=== PATIENT | female | born 2000 | race Caucasian/White ===

== ENCOUNTER 2022-09-04 09:07 | Outpatient (REF) | payer MEDICAID, SELFPAY ==
[2022-09-04 11:38] LABS: MANUAL DIFF FLAG NO
[2022-09-04 11:49] LABS: Basophils Absolute Auto 0.1 X10*3/uL (0.0-0.2); Basophils Percent Auto 0.6 % (0-2); Eosinophils Absolute Auto 0.1 X10*3/uL (0.0-0.4); Eosinophils Percent Auto 1.2 % (0-4); Hematocrit 44.1 % (37.0-47.0); Hemoglobin 14.6 g/dl (12.0-16.0); Imm Gran Abs Auto 0.01 X10*3/uL (0.00-0.03); Imm Gran Pct Auto 0.1 % (0.0-0.4); Lymphocytes Absolute Auto 2.4 X10*3/uL (1.2-4.9); Lymphocytes Percent Auto 28.5 % (20-40); Mean Corpuscular HGB Conc 33.1 g/dl (31.0-35.0); Mean Corpuscular Hemoglobin 27.9 pg (27.0-33.0); Mean Corpuscular Volume 84.2 fL (80.0-98.0); Mean Platelet Volume 10.6 fL (9.4-12.3); Monocytes Absolute Auto 0.6 X10*3/uL (0.1-1.2); Monocytes Percent Auto 6.6 % (2-11); Neutrophils Absolute Auto 5.2 x10*3/uL (2.0-8.3); Platelet Count 373 X10*3/uL (160-400); Red Blood Count 5.24 X10*6/uL (4.20-5.50); Red Cell Distribution Width 14.6 % (11.0-16.0); White Blood Count 8.3 X10*3/uL (4.8-10.8)
[2022-09-04 12:40] LABS: Anion Gap 12 (12-20); Blood Urea Nitrogen 8 mg/dL (9-16); Calcium 10.2 mg/dL (8.4-10.2); Carbon Dioxide 26 mmol/L (22-29); Chloride 106 mmol/L (96-108); Cholesterol 137 mg/dL; Estimated Glomerular Filt Rate > 60; Glucose Random 86 mg/dL (60-115); HDL Cholesterol 40 mg/dL; LDL Cholesterol Calculated 80 mg/dl; Potassium 3.8 mmol/L (3.3-5.1); Sodium 140 mmol/L (135-145); Triglycerides 85 mg/dL
== END 2022-09-04 09:08 | disposition home or self-care (01) ==
LOC: HO.HHCL 09:07
PROVIDERS: Visit Provider Registered Nurse
DX: Z00.00 Encounter for general adult medical examination without abnormal findings (principal)
CPT/HCPCS: 36415; 80048; 80061; 85025

== ENCOUNTER 2024-04-17 15:27 | Outpatient (REF) | payer MEDICAID, SELFPAY ==
--- NOTE | ~2024-04-17 | XR_ITS ---
EXAMINATION: XR LUMBOSACRAL SPINE CLINICAL INFORMATION: History of scoliosis with worsening pain COMPARISON: None available. TECHNIQUE: Three views of the lumbosacral spine. FINDINGS: No acute cortical disruption or gross malalignment. No lytic or blastic lesions. Small Schmorl nodes in the lower thoracic and upper lumbar spine. XR/XR lumbar spine 2-3V IMPRESSION: No acute fracture or listhesis. No gross scoliosis. Electronically signed by: Corey Scott MD 04/17/2024 04:07 PM [facility]
--- NOTE | ~2024-04-17 | XR_ITS ---
EXAMINATION: XR THORACIC SPINE CLINICAL INFORMATION: PAIN COMPARISON: None available. TECHNIQUE: 3 views of the thoracic spine were obtained. FINDINGS: S-shaped curvature of the thoracic spine. No acute cortical disruption or gross malalignment. XR/XR thoracic spine 2V IMPRESSION: Scoliosis, mild. Electronically signed by: Corey Scott MD 04/17/2024 04:06 PM [facility]
--- OUTSIDE RECORDS SUMMARY | 2024-04-17 17:33 | XMS_ITS | Encounter Summary ---
Author Organization [employer] Address [address] [place] [address] Care Team Providers Care Bilingual School Psychologist Name Role Phone Name, Blaise URIBE Primary Care Provider [phone] Encounter Details Date Type Department Care Team (Latest Contact Info) Description 04/17/2024 Travel Social History Tobacco Use Types Packs/Day Years Used Date Smoking Tobacco: Never Smokeless Tobacco: Never Alcohol Use Standard Drinks/Week Comments Never 0 (1 standard drink = 0.6 oz pur e alcohol) Depression Answer Date Recorded Patient Health Questionnaire-9 Score 2 02/04/2024 Patient Health Questionnaire-9 Score 2 02/04/2024 Last PHQ-9: Questionnaire Data Not on file 1 04/06/2023 Housing Stability Answer Date Recorded What is your housing situation today? I have angel silva 03/25/[address] you li ve. Do you have problems with any of the following? None of the above 03/25/2023 Food Insecurity Answer Date Recorded Within the past 12 months, y ou worried that your food would run out before you got money to buy more: Never True 12/04/2022 Within the past 12 months,th e food you bought just didn't last and you didn't have enough money to get more: Never True Transportation Answer Date Recorded In the past 12 months, has l ack of transportation kept you from medical appts, meetings, work or from getting things needed for daily living? No 12/04/2022 Utilities Answer Date Recorded In the past 12 months, has t he electric, gas, oil or water company threatened to shut off services in your home? No 12/04/2022 Depression Answer Date Recorded Patient Health Questionnaire-2 Score 0 02/04/2024 Comments Unknown Sex and Gender Information Value Date Recorded Sex Assigned at Female 12/18/2021 10:20 AM EDT Legal Sex Female 10:20 AM EDT Gender Identity Female 02/04/2024 12:47 PM EST Sexual Orientation Straight 02/04/2024 12 :47 PM EST documented as of this encounter Plan of Treatment Not on file documented as of this encounter Visit Diagnoses Not on filedocumented in this encounter Additional Health Concerns Assessment Noted Time PHQ-9 Depression Total Score: 2 02/04/20 2:11 PM EST documented as of this encounter Care Teams Bilingual School Psychologist Relationship Specialty Start Date End Date Name, MD Blaise [address] [place] [address] PCP - General Internal Medicine 01/29/24 Tenisha Benavides Auto Body Repairer FiberglassAtomic Spectroscopist 06/04/23 documented as of this encounter
--- OUTSIDE RECORDS SUMMARY | 2024-04-17 17:33 | XMS_ITS | Encounter Summary ---
Author Organization [employer] Address [address] [place] [address] Care Team Providers Care Garment Worker Name Role Phone Leo Dickerson Primary Care Provider Unavail able Harriett Mazariegos MD Primary Care Provide r Name, Blaise URIBE Primary Care Provider [phone] Harriett Mazariegos MD Primary Care Provide r Name, Blaise URIBE Primary Care Provider [phone] Reason for Visit * Reason Onset Date Comments Results 09/04/2022 Encounter Details Date Type Department Care Team (Late st Contact Info) Description 09/04/2022 Telephone [facility] [address] [place], [place] [phone] Leo Dickerson AGNP Results Social History Tobacco Use Types Packs/Day Years Used Date Smoking Tobacco: Never Smokeless Tobacco: Never Alcohol Use Standard Drinks/Week Comments Never 0 (1 standard drink = 0.6 oz pur e alcohol) Depression Answer Date Recorded Patient Health Questionnaire-9 Score 0 07/06/2022 Depression Answer Date Recorded Patient Health Questionnaire-2 Score 0 07/06/2022 Comments Yes Sex and Gender Information Value Date Recorded Sex Assigned at Female 12/18/2021 10:20 AM EDT Legal Sex Female 10:20 AM EDT Gender Identity Female 02/04/2024 12:47 PM EST Sexual Orientation Straight 02/04/2024 12 :47 PM EST COVID-19 Exposure Response Date Recorded In the last 10 days, have som garza been in contact with someone who was confirmed or suspected to have Coronavirus/COVID-19? No / Unsure 08/24/2022 1:39 PM EDT documented as of this encounter Miscellaneous Notes * Telephone Encounter - Dian Mendez - 09/04/2022 2:46 PM EDT Tc from pt requesting a call in regards to recent labs done. Please contact pt at [phone] documented in this encounter Plan of Treatment Not on file documented as of this encounter Visit Diagnoses Not on filedocumented in this encounter Additional Health Concerns Assessment Noted Time PHQ-9 Depression Total Score: 0 07/07/19 10:37 AM EDT documented as of this encounter Care Teams Garment Worker Relationship Specialty Start Date End Date Leo Dickerson AGNP PCP - General Family Medicine 03/28/22 11/07/22 Harriett Mazariegos MD [address] [place] [address] PCP - General Internal Medicine 11/08/22 06/23/23 Blaise Cummings MD [address] [place] [phone] PCP - General Internal Medicine 06/24/23 01/19/24 Harriett Mazariegos MD [address] [place] [phone] PCP - General Internal Medicine 01/20/24 01/28/24 Blaise Cummings MD [address] [place] [address] PCP - General Internal Medicine 01/29/24 Tenisha Benavides Hired HelpChauffeur Motorbus 06/04/23 documented as of this encounter
--- OUTSIDE RECORDS SUMMARY | 2024-04-17 17:33 | XMS_ITS | Clinical Summary ---
Author Organization [email or web address] Address [address] [place] [address] Care Team Providers Care Trailhead Construction Worker Name Role Phone Name, Blaise URIBE Primary Care Provider [phone] Allergies No known active allergies Medications celecoxib (CeleBREX) 200 MG capsule Take 200 mg twice daily x 7 days then as needed for pain 60 capsule 04/17/2024 Active Active Problems Problem Noted Date Diagnosed Date Murmur, cardiac 08/24/2022 Assessment & Plan (08/24/2022 4:59 PM EDT): Patient asymptomatic but I feel an echo is warranted. Anxiety 07/06/2022 Class 1 obesity 07/06/2022 History of migraine 07/06/2022 Overview (07/06/2022): Patient reports last migraine during her first . Assessment & Plan (07/06/2022 11:22 AM EDT): Patient reports last migraine during her first . follow-up 07/06/2022 Assessment & Plan (07/06/2022 12:28 PM EDT): Patient comes across as a very happy and healthy mother. She is followed by OB. They are potentially going to be operating on her due to hydronephrosis. Even though she reports being incredibly happy, I gave her a [place] Depression Scale(EPDS) and told her to look it over when she gets a chance and let me know if anything strikes her as odd. Routine adult health maintenance 07/06/2022 Scoliosis 07/03/2022 Assessment & Plan (07/06/2022 12:30 PM EDT): She has a history of scoliosis and lumbar back pain. We were waiting for her to deliver her son before we sent her. Teen 07/06/2019 Overview (07/06/2022): Problem added [place] Discern Expert [place] Resolved Problems Problem Noted Date Diagnosed Date Resolved Date Migraine 07/06/2022 07/06/2022 Encounters Date Type Department Care Team Description 04/17/2024 2:15 PM EST Office Visit [address] [address] Slime Loaiza, SYLVESTER Scoliosis, unspecified scoliosis type, unspecified spinal region (Primary Dx) 04/17/2024 Travel 04/16/[address] [address] NameBlaise MD 02/04/2024 1:15 PM EST Office Visit [address] [address] Blaise Cummings MD Murmur, cardiac (Primary Dx); Routine adult health maintenance 02/04/2024 Travel 02/03/[address] [address] Elvira Baker MA Chart Prep 01/29/[address] [address] Radha Anderson, KIMBERLY Error (VOID this visit) 01/29/[address] [address] Radha Anderson, RN from Last 3 Months Immunizations Name Administration Dates Next Due DTaP 03/27/2004, 2,2000,05/29 HPV 9-Valent 07/19/2015 HPV, Quadrivalent 10/16/2011,06/20/2011 Hep A, ped/adol, 2 dose 01/24/2016,07/19/2015 Hep B, Adolescent or Pediatric 06/30/2001,2000,2000 Hib (HbOC) 06/30/2001,2000,2000 IPV 03/27/2004, 1,2000,05/29 Influenza injectable quadriv alent preservative free 01/24/2016 Influenza, IIV3, injectable 02/27/2008 Influenza, seasonal, injecta ble, preservative free 02/04/2024 MMR 03/27/2004,04/22/2001 Meningococcal MPSV4 06/20/2011 Pneumococcal Conjugate PCV 7 2000,08/13/19,2000 Tdap 06/20/2011 Varicella 02/27/2008,04/22/2001 Social History Tobacco Use Types Packs/Day Years Used Date Smoking Tobacco: Never Smokeless Tobacco: Never Tobacco Cessation:Counseling Given: Not Answered Alcohol Use Standard Drinks/Week Comments Never 0 [...] Orientation Straight 02/04/2024 12 :47 PM EST Last Filed Vital Signs Vital Sign Reading Time Taken Comments Blood Pressure 113/70 04/17/2024 2:37 PM EST Pulse 103 04/17/2024 2:37 PM EST Temperature 37 ??C (98.6 ??F) 04/17/2024 2:37 PM EST Respiratory Rate 16 04/17/2024 2:37 PM EST Oxygen Saturation 98% 04/17/2024 2:37 PM EST Inhaled Oxygen Concentration - - Weight 61.1 kg (134 lb 9.6 oz) 04/17/2024 2:37 P M EST Height 154.9 cm (5' 1 ) 04/17/2024 2:37 PM EST Body Mass Index 25.43 04/17/2024 2:37 PM EST Plan of Treatment Health Maintenance Due Date Last Done Comments Alcohol/Substance Use Screening 2012 Family Planning (PISQ) 2015 DTaP/Tdap/Td Vaccines (6 - Td or Tdap) 06/19/2021 06/20/2011, 03/27/2004, 04/22/2001, Additional history exists COVID-19 Vaccine ( season) 2023 SDOH Screening 05/14/2024 05/15/2023 Pap Smear 06/13/2024 06/13/2021 Depression Screening 02/03/2025 02/04/2024, 02/04/20 Tobacco Screening 04/17/2025 04/17/2024 Zoster Vaccines (1 of 2) 2050 RSV Patients and Patients Aged 60 years or older (1 - 1-dose 75+ series) 2075 Pneumococcal Vaccine: Pediatrics (0 to 5 Years) and At-Risk Patients (6 to 49) Years) Aged Out 2000, 2000, 2000 No longer eligible based on patient's age to complete this topic HIB Vaccines Completed 06/30/2001, 07/20, 2000 Hepatitis B Vaccines Completed 06/30/2001, 2000, 2000 IPV Vaccines Completed 03/27/2004, 10/20, 2000, Additional history exists Meningococcal Vaccine Aged Out 06/20/2011 No rigo sapna eligible based on patient's age to complete this topic HPV Vaccines Completed 07/19/2015, 09/19, 06/20/2011 Hepatitis A Vaccines Completed 01/24/2016, 07/19/19 16 Influenza Vaccine Completed 02/04/2024, , 02/27/2008 HIV Screening Discontinued Hepatitis C Screening Discontinued RSV under 20 months Aged Out No longe r eligible based on patient's age to complete this topic Rotavirus Vaccines Aged Out No longer eligible based on patient's age to complete this topic Procedures Procedure Name Priority Date/Time Associated Diagnosis Comments XR LUMBAR SPINE 2-3 VIEWS Routine 04/17/2024 3:30 PM EST Scoliosis, unspecified scoliosis type, unspecified spinal region XR THORACIC SPINE 2 VIEWS Routine 04/17/2024 3:30 PM EST Scoliosis, unspecified scoliosis type, unspecified spinal region HM PAP/HPV Routine 06/13/2021 from Last 3 Months or Most Recently Relevant to Health Maintenance Results * XR Lumbar Spine 2-3 Views (04/17/2024 3:30 PM EST) Anatomical Region Laterality Modality Spine, L-spine Radiographic Adalgisa ging 04/17/2024 3:30 PM EST Narrative 04/17/2024 4:10 PM EST ?[facility] ?[address] ?[place] [address] ?XRay Report ? Signed ? Patient: Andersen Lazo,Jesenia ?MR#: [id number] ? : 2000 ?Acct:[id number] ? Age/Sex: 24 / F ?ADM Date: /28/25 ? Loc: HO.HHCX ? Attending Dr: Slime Loaiza MANAGER CONTACT ? Ordering Physician: Slime Loaiza ?? Date of Service: 04/17/24 ?? Procedure(s): XR lumbar spine 2-3V ?? Accession Number(s): [id number] ? cc: Slime Loaiza MANAGER CONTACT ? EXAMINATION: ?? XR LUMBOSACRAL SPINE ? CLINICAL INFORMATION: ?? History of scoliosis with worsening pain ? COMPARISON: ?? None available. ? TECHNIQUE: ?? Three views of the lumbosacral spine. ? FINDINGS: ?? No acute cortical disruption or gross malalignment. No lytic or blastic ?? lesions. Small Schmorl nodes in the lower thoracic and upper lumbar ?? spine. ? XR/XR lumbar spine 2-3V ?? IMPRESSION: ?? No acute fracture or listhesis. ?? No gross scoliosis. ? Electronically signed by: ??Corey Scott MD ??04/17/2024 04:07 PM ?? EST RP ? Dictated By: ?Corey Ruiz MD ? Signed By: ?<Electronically signed by Corey Yo MD in OV> ? 04/17/24 1607 ? DD/ 1530 ? TD/TT: 04/17/24 1552 ? Therapy Site Coordinator: ? Procedure Note Angela Rosa - 04/17/[address] [address] XRay Report Signed Patient: Juan Manuel Franco#: [id number] : 2000Acct:[id number] Age/Sex: 24 / FADM Date: 04/17/24 Loc: HO.HHCX Attending Dr: Slime PHAN Ordering Physician: Slime Loaiza Date of Service: 04/17/24 Procedure(s): XR lumbar spine 2-3V Accession Number(s): [id number] cc: Slime Loaiza EXAMINATION: XR LUMBOSACRAL SPINE CLINICAL INFORMATION: History of scoliosis with worsening pain COMPARISON: None available. TECHNIQUE: Three views of the lumbosacral spine. FINDINGS: No acute cortical disruption or gross malalignment. No lytic or blastic lesions. Small Schmorl nodes in the lower thoracic and upper lumbar spine. XR/XR lumbar spine 2-3V IMPRESSION: No acute fracture or listhesis. No gross scoliosis. Electronically signed by: Corey Scott MD 04/17/2024 04:07 PM EST RP Dictated By: Corey Ruiz MD Signed By: <Electronically signed by Corey Yo MDin OV> 04/17/24 1607 DD/ 1530 TD/TT: 04/17/24 1552 Therapy Site Coordinator: us Slime Sampsonhansa MANAGER CONTACT IMG XR PROCEDURES Final Result * XR Thoracic Spine 2 Views (04/17/2024 3:30 PM EST) Anatomical Region Laterality Modality Spine, T-spine Radiographic Adalgisa ging 04/17/2024 3:30 PM EST Narrative 04/17/2024 4:09 PM EST ?[facility] ?[address] ?[place] [address] ?XRay Report ? Signed ? Patient: Jesenia Franco ?MR#: [id number] ?? [id number] ? : 2000 ?Acct:[id number] ? Age/Sex: 24 / F ?ADM Date: 04/17/24 ? Loc: HO.HHCX ? Attending Dr: Slime Loaiza MANAGER CONTACT ? Ordering Physician: Slime Loaiza MANAGER CONTACT ?? Date of Service: 04/17/24 ?? Procedure(s): XR thoracic spine 2V ?? Accession Number(s): [id number] ? cc: Slime Loaiza MANAGER CONTACT ? EXAMINATION: ?? XR THORACIC SPINE ? CLINICAL INFORMATION: ?? PAIN ? COMPARISON: ?? None available. ? TECHNIQUE: ?? 3 views of the thoracic spine were obtained. ? FINDINGS: ?? S-shaped curvature of the thoracic spine. No acute cortical disruption ?? or gross malalignment. ? XR/XR thoracic spine 2V ?? IMPRESSION: ?? Scoliosis, mild. ? Electronically signed by: ??Corey Scott MD ??04/17/2024 04:06 PM ?? EST RP ? Dictated By: ?Corey Ruiz MD ? Signed By: ?<Electronically signed by Corey Yo MD in OV> ? 04/17/24 1606 ? DD/ 1530 ? TD/TT: 04/17/24 1552 ? Therapy Site Coordinator: ? Procedure Note Donotuseinterpreter, Image - 04/17/[address] [address] XRay Report Signed Patient: Juan Manuel Franco#: [id number] : 2000Acct:[id number] Age/Sex: 24 / FADM Date: 04/17/24 Loc: HO.HHCX Attending Dr: Slime PHAN Ordering Physician: Slime Loaiza Date of Service: 04/17/24 Procedure(s): XR thoracic spine 2V Accession Number(s): [id number] cc: Slime Loaiza EXAMINATION: XR THORACIC SPINE CLINICAL INFORMATION: PAIN COMPARISON: None available. TECHNIQUE: 3 views of the thoracic spine were obtained. FINDINGS: S-shaped curvature of the thoracic spine. No acute cortical disruption or gross malalignment. XR/XR thoracic spine 2V IMPRESSION: Scoliosis, mild. Electronically signed by: Corey Scott MD 04/17/2024 04:06 PM [facility] Dictated By: Corey Ruiz MD Signed By: <Electronically signed by Corey Yo MDin OV> 04/17/24 1606 DD/ 1530 TD/TT: 04/17/24 1552 Therapy Site Coordinator: Slime Loaiza MANAGER CONTACT IMG XR PROCEDURES Final Result * Hm Pap Smear (06/13/2021) Pap Negative for intraephithelial lesion or malignancy Negative for intraephithelial lesion or malignancy, Other us Historical Provider HEALTH MAINTENANCE Final Result from Last 3 Months or Most Recently Relevant to Health Maintenance Insurance [facility] C3 Care Teams Trailhead Construction Worker Relationship Specialty Start Date End Date Name, MD Blaise [address] [place] [id number] PCP - General Internal Medicine 01/29/24 Tenisha Benavides Windows Deployment TechnicianHospice Community Liaison 06/04/23
--- OUTSIDE RECORDS SUMMARY | 2024-04-17 17:33 | XMS_ITS | Encounter Summary ---
Author Organization [employer] Address [address] [place] [address] Care Team Providers Care Solderer Name Role Phone Harriett Mazariegos MD Primary Care Provide r Name, Blaise URIBE Primary Care Provider [phone] Harriett Mazariegos MD Primary Care Provide r Name, Blaise URIBE Primary Care Provider [phone] Reason for Visit * Reason Onset Date Comments Request For Order(s) 12/06/2022 Stress Echo Stress Encounter Details Date Type Department Care Team ([facility] st Contact Info) Description 12/06/2022 Telephone [facility] [address] [place] [phone] Harriett Mazariegos MD [address] [place], [place] [phone] Request For Order(s) (Stress Echo Stress) Social History Tobacco Use Types Packs/Day Years Used Date Smoking Tobacco: Never Smokeless Tobacco: Never Alcohol Use Standard Drinks/Week Comments Never 0 (1 standard drink = 0.6 oz pur e alcohol) Depression Answer Date Recorded Patient Health Questionnaire-9 Score 0 07/06/2022 Housing Stability Answer Date Recorded What is your housing situation today? I do not have housing (Staying with others, in a hotel, in a half-way, living outside on the street, on a beach, in a car, or in a park 11/25/[address] you li ve. Do you have problems with any of the following? None of the above 11/25/2022 Food Insecurity Answer Date Recorded Within the [...] PM EST documented as of this encounter Miscellaneous Notes * Telephone Encounter - Iva Art RN - 12/06/2022 11:02 AM EDT TC returned to [facility], informed their office stress echo was never intended ren ordered. They report the booking facility booked pt. For the wrong test, therefore the scheduling process would have to be restarted with he correct order (regular echo order form 08/24/22). They requested I call the patient to let her know not to come to her appt. Tomorrow. TC placed to pt. And informed of this, she verbalizes understanding and will expect a call to r/s the correct test. Please schedule regular echo at [facility], thank you!! * Telephone Encounter - Iva Art RN - 12/06/2022 10:33 AM EDT Regular echo was ordered at appt. With ABDIRIZAK Dickerson 08/24/22 to evaluate heart murmur, pt. Asymptomatic, details were:Comments: Murmur: Leon with each beat over aortic valve. Not heard over pulmonary valve, erb's point, or tricuspid valve. Murmur changes to a whooshing sound every 3 or 4 heart beats over the mitral valve. Please advise on if order needs to be changed to stress echo, or if regular echo if sufficient so [facility] can appropriately schedule pt. Thank you!! * Telephone Encounter - Josiah Lu - 12/06/2022 9:12 AM EDT Tc from [facility] calling in regards to echo order from 08/24/22 by LUPE Dickerson.Patient is currently booked for a stress echo on 12/07/22 at 1pm at [facility]. [facility] is inquiring if thetest is meant to be for a regular echo or a stress echo which will need a new order, [facility] only has regular echo order. Please clarify and send correct order. If PCP does not want a stress echo patie nts appt will have to be cancelled and booked for correct order. Please call [phone] Fax number [phone]. documented in this encounter Plan of Treatment Not on file documented as of this encounter Visit Diagnoses Not on filedocumented in this encounter Additional Health Concerns Assessment Noted Time PHQ-9 Depression Total Score: 0 07/07/19 10:37 AM EDT documented as of this encounter Care Teams Solderer Relationship Specialty Start Date End Date Harriett Mazariegos MD [address] [place], [place] [phone] PCP - General Internal Medicine 11/08/22 06/23/23 Blaise Cummings MD [address] [place], [place] [phone] PCP - General Internal Medicine 06/24/23 01/19/24 Harriett Mazariegos MD [address] [place], [place] [phone] PCP - General Internal Medicine 01/20/24 01/28/24 Blaise Cummings MD [address] [place] [address] PCP - General Internal Medicine 01/29/24 Tenisha Benavides DominatrixWhip Sawyer 06/04/23 documented as of this encounter
--- OUTSIDE RECORDS SUMMARY | 2024-04-17 17:33 | XMS_ITS | Encounter Summary ---
Author Organization [employer] Address [address] [place] [address] Care Team Providers Care Filling Hauler Weaving Name Role Phone Name, Blaise URIBE Primary Care Provider [phone] Encounter Details Date Type Department Care Team ([facility] st Contact Info) Description 04/16/2024 Telephone [facility] [address] [place] [address] Name, MD Blaise [address] [place] [address] Social History Tobacco Use Types Packs/Day Years [...] encounter Miscellaneous Notes * Telephone Encounter - Carley Conte RN - 04/16/2024 4:54 PM EST Call returned to Jesenia Lazo to triage below. Reports having chronic low back pain but has been worse x 2 months. No radiating pain to legs. No urinary sx. No injury or fall. Per pt is using OTC Tyelnol/Advil with mild relief. Pt rates pain 5/10.Pt states pain interfering with ADLs Pt advised of disposition, agrees to sick on site tomorrow with blue team provider for exam. Reviewed home care advise, ER precautions and reasons to call back. Protocol Used: Back Pain (Adult) Protocol-Based Disposition: See in Office or Video Visit within 3 Days Future Appointments Date Time Provider Department Center 04/17/2024 2:15 PM SYLVESTER Alfredo MEDICINE [facility] Insurance verified as active per Real Time Eligibility in [facility]. Video visit offer not recorded Positive Triage Question: * Moderate back pain (e.g., interferes with normal activities) and present > 3 days * All higher-acuity triage questions were negative Care Advice Discussed: * Reasons To Call Back - Numbness or weakness occurs - Loss of control of your bladder or bowel - Pain begins to shoot into the leg - You become worse documented in this encounter Plan of Treatment Not on file documented as of this encounter Visit Diagnoses Not on filedocumented in this encounter Additional Health Concerns Assessment Noted Time PHQ-9 Depression Total Score: 2 02/04/20 24 2:11 PM EST documented as of this encounter Care Teams Filling Hauler Weaving Relationship Specialty Start Date End Date Name, MD Blaise [address] [place] [address] PCP - General Internal Medicine 01/29/24 Tenisha Benavides Arboriculture InstructorHeading Up Machine Operator 06/04/23 documented as of this encounter
--- OUTSIDE RECORDS SUMMARY | 2024-04-17 17:33 | XMS_ITS | Encounter Summary ---
Author Organization [employer] Address [address] [place] [address] Care Team Providers Care Operational Trainer Name Role Phone Name, Blaise URIBE Primary Care Provider [phone] Encounter Details Date Type Department Care Team (Late st Contact Info) Description 04/17/2024 2:15 PM EST Office Visit [facility] [address] [place] [address] Slime Loaiza FNP [address] [place] [address] Scoliosis, unspecified scoliosis type, unspecified spinal region (Primary Dx) Social History Tobacco Use Types Packs/Day Years [...] PM EST documented as of this encounter Last Filed Vital Signs Vital Sign Reading [...] Mass Index 25.43 04/17/2024 2:37 PM EST documented in this encounter Plan of Treatment Not on file documented as of this encounter Procedures Procedure Name Priority Date/Time Associated Diagnosis Comments XR LUMBAR SPINE 2-3 VIEWS Routine 04/17/2024 3:30 PM EST Scoliosis, unspecified scoliosis type, unspecified spinal region XR THORACIC SPINE 2 VIEWS Routine 04/17/2024 3:30 PM EST Scoliosis, unspecified scoliosis type, unspecified spinal region documented in this encounter Results * XR Lumbar Spine 2-3 Views (04/17/2024 3:30 PM EST) Anatomical Region Laterality Modality Spine, L-spine Radiographic Adalgisa ging 04/17/2024 3:30 PM EST Narrative 04/17/2024 4:10 PM EST ?[facility] ?[address] ?[place] [address] ?XRay Report ? Signed ? Patient: Andersen Lazo,Jesenia ?MR#: [id number] ? : 2000 ?Acct:[id number] ? Age/Sex: 24 / F ?ADM Date: 04/17/24 ? Loc: HO.HHCX ? Attending Dr: Slime PHAN ? Ordering Physician: Slime Loaiza ?? Date of Service: 04/17/24 ?? Procedure(s): XR lumbar spine 2-3V ?? Accession Number(s): [id number] ? cc: Slime Loaiza ? EXAMINATION: ?? XR LUMBOSACRAL SPINE ? [...] DD/ 1530 ? TD/TT: 04/17/24 1552 ? Senior Procurement Manager: ? Procedure Note Angela Rosa - 04/17/2024 [facility] [address] [place] [address] XRay Report Signed Patient: Juan Manuel Franco#: [id number] : 2000Acct:[id number] Age/Sex: 24 / FADM Date: 04/17/24 Loc: HO.HHCX Attending Dr: Slime PHAN Ordering Physician: Slime Loaiza Date of Service: 04/17/24 Procedure(s): XR lumbar spine 2-3V Accession Number(s): [id number] cc: Slime Loaiza EXAMINATION: XR LUMBOSACRAL SPINE [...] 04/17/24 1607 DD/ 1530 TD/TT: 04/17/24 1552 Senior Procurement Manager: Slime Loaiza REHABILITATION SUPERVISOR IMG XR PROCEDURES Final Result * XR Thoracic Spine 2 Views (04/17/2024 3:30 PM EST) Anatomical Region Laterality Modality Spine, T-spine Radiographic Adalgisa ging 04/17/2024 3:30 PM EST Narrative 04/17/2024 4:09 PM EST ?[facility] ?[address] ?[place] [address] ?XRay Report ? Signed ? Patient: Andersen Lazo,Jesenia ?MR#: [id number] ?? [id number] ? : 2000 ?Acct:[id number] ? Age/Sex: 24 / F ?ADM Date: 02/28/25 ? Loc: HO.HHCX ? Attending Dr: Slime PHAN ? Ordering Physician: Slime Loaiza ?? Date of Service: 04/17/24 ?? Procedure(s): XR thoracic spine 2V ?? Accession Number(s): [id number] ? cc: Slime Loaiza ? EXAMINATION: ?? XR THORACIC SPINE ? [...] DD/ 1530 ? TD/TT: 04/17/24 1552 ? Senior Procurement Manager: ? Procedure Note Angela Rosa - 04/17/[address] [address] XRay Report Signed Patient: Juan Manuel Franco#: [id number] : 2000Acct:[id number] Age/Sex: 24 / FADM Date: 04/17/24 Loc: HO.HHCX Attending Dr: Slime PHAN Ordering Physician: Slime Loaiza Date of Service: 04/17/24 Procedure(s): XR thoracic spine 2V Accession Number(s): [id number] cc: Slime Loaiza EXAMINATION: XR THORACIC SPINE [...] 04/17/24 1606 DD/ 1530 TD/TT: 04/17/24 1552 Senior Procurement Manager: us Slimekan Bradenhansa REHABILITATION SUPERVISOR IMG XR PROCEDURES Final Result documented in this encounter Visit Diagnoses Diagnosis Scoliosis, unspecified scoliosis type, unspecified spinal region- Primary documented in this encounter Additional Health Concerns Assessment Noted Time PHQ-9 Depression Total Score: 2 02/04/20 24 2:11 PM EST documented as of this encounter Care Teams Operational Trainer Relationship Specialty Start Date End Date Name, MD Blaise [address] [place] [address] PCP - General Internal Medicine 01/29/24 Tenisha Benavides Senior Power Plant OperatorMechanical Piping Designer 06/04/23 documented as of this encounter
== END 2024-04-17 15:28 | disposition home or self-care (01) ==
LOC: HO.HHCX 15:27
PROVIDERS: Visit Provider Nurse Practitioner Family
DX: M41.9 Scoliosis, unspecified (principal)
CPT/HCPCS: 72070; 72100

== ENCOUNTER → 2024-04-17 15:30 | Outpatient (BNV) | payer MEDICAID, SELFPAY | PROVIDERS: Visit Provider Radiology Diagnostic Radiology | DX: M41.9 Scoliosis, unspecified (principal) | CPT/HCPCS: 72070; 72100 ==

== ENCOUNTER 2024-11-17 14:04 | Outpatient (REF) | payer MEDICAID, SELFPAY ==
--- OUTSIDE RECORDS SUMMARY | 2024-11-12 09:00 | XMS_ITS | Encounter Summary ---
Author Organization [employer] Address [address] [place] [address] Care Team Providers Care Safe And Vault Service Mechanic Name Role Phone Name, Blaise URIBE Primary Care Provider [phone] Reason for Visit * Reason Comments Blurred Vision Encounter Details Date Type Department Care Team (Late st Contact Info) Description 11/12/2024 9:00 AM EDT Office Visit [facility] OPTOMETRY [address] [place] [address] Violeta Mccabe, OD [address] [place] [address] Myopia of both eyes (Primary Dx); Eyelid myokymia Social History Tobacco Use Types Packs/Day Years [...] is your housing situation today? I have nagel silva 03/25/[address] you [...] PM EST documented as of this encounter Progress Notes * Violeta Mccabe, OD - 11/12/2024 9:00 AM EDT Eye Care Progress Note Patient ID: Jesenia Lazo is a 24 y.o. female. Chief Complaint Blurred Vision HPI 24 yo female presents for comprehensive eye exam complaining of blurred distance vision for the past few months. She wears spectacles for distance only and notices that she doesn't seem to see as well with them as before. She also has noticed occasional eye twitching recently after prolonged near work. She denies all other ocular complaints. Last edited by Violeta Mccabe, OD on 11/12/2024 9:29 AM. Current Medications[1] Medical History[2] Surgical History[3] Family History[4] Social History Socioeconomic History Marital status: Significant Other Spouse name: Not on file Number of children: Not on file Years of education: Not on file Highest education level: Not on file Occupational History Not on file Tobacco Use Smoking status: Never Smokeless tobacco: Never Vaping Use Vaping status: Never Used Substance and Sexual Activity Alcohol use: Never Drug use: Never Sexual activity: Yes control/protection: Surgical Other Topics Concern Not on file Social History Narrative Not on file Social Drivers of Health Food Insecurity: Low Risk (12/04/2022) Food Insecurity Within the past 12 months, you worried that your food would run out before you got money to buy more:: Never True Within the past 12 months,the food you bought just didn't last and you didn't have enough money to get more: : Never True Transportation Needs: Low Risk (12/04/2022) Transportation In the past 12 months, has lack of transportation kept you from medical appts, meetings, work or from getting things needed for daily living? : No Intimate Partner Violence: Not on file Housing Stability: Low Risk (03/25/2023) Housing Stability What is your housing situation today?: I have housing Think about the place you live. Do you have problems with any of the following? : None of the above Allergies[5] ROS Positive for: Neurological (migraine), Psychiatric (anxiety) Negative for: Constitutional, Gastrointestinal, Skin, Genitourinary, Musculoskeletal, HENT, Endocrine, Cardiovascular, Eyes, Respiratory, Allergic/Imm, Heme/Lymph Last edited by Violeta Mccabe, BRIAN on 11/12/2024 9:13 AM. Base Eye Exam Visual Acuity (Snellen - Linear) Right Left Dist cc 20/25 -2 20/30 +2 Tonometry ([facility] , 9:25 AM) Right Left Pressure 14 13 Pupils Pupils APD Right PERRL None Left PERRL None Visual Cody (Counting fingers) Left Right Full Full Extraocular Movement Right Left Full, Ortho Full, Ortho Neuro/Psych Oriented x3: Yes Mood/Affect: Normal Dilation Both eyes: 1.0% Mydriacyl @ 9:25 AM Slit Lamp and Fundus Exam External Exam Right Left External Normal Normal Slit Lamp Exam Right Left Lids/Lashes Normal Normal Conjunctiva/Sclera White and quiet White and quiet Cornea Clear Clear Anterior Chamber Deep and quiet Deep and quiet Iris Flat Flat Lens Clear Clear Fundus Exam Right Left Vitreous Clear Clear Disc Krupp and distinct Krupp and distinct C/D Ratio Vertical 0.2 0.2 C/D Ratio Horizontal 0.2 0.2 Macula Clear Clear Vessels 2/3:1 2/3:1 Periphery No holes, breaks, tears 360 No holes, breaks, tears 360 Refraction Wearing Rx Sphere Cylinder Right -0.75 Sphere Left -1.00 Sphere Type: DVO Manifest Refraction Sphere Cylinder Dist VA Near VA Right -1.00 Sphere 20/20 20/20 Left -1.25 Sphere 20/20 20/20 Final Rx Sphere Cylinder Dist VA Near VA Right -1.00 Sphere 20/20 20/20 Left -1.25 Sphere 20/20 20/20 Expiration Date: 11/12/2026 Assessment/plan: Diagnoses and all orders for this visit: Myopia of both eyes Myopia both eyes (OU) in a patient with complaint of blurred distance vision. Patient education regarding mild progression of myopia and spectacle correction for distance vision. New Spectacle Rx issued for DVO. Monitor at comprehensive eye exam in 2 years or sooner if any changes in vision occur. 2. Eyelid myokymia Complaint of intermittent eyelid twitching after prolonged near work. Likely due to accommodative spasm and nearpoint stress. Normal internal and external ocular findings on dilated eye exam. Discussed importance of taking breaks periodically when performing near tasks as well as removing distance spectacles for near work. Monitor at CEE in 2 years or sooner if symptoms worsen. Violeta Mccabe, OD 11/12/2024, 9:31 AM [1] Current Outpatient Medications Medication Sig Dispense Refill celecoxib (CeleBREX) 200 MG capsule TAKE 1 CAPSULE BY MOUTH TWICE A DAY X 7 DAYS THEN NEEDED FORPAIN 60 capsule 0 No current facility-administered medications for this visit. [2] History reviewed. No pertinent past medical history. [3] Past Surgical History: Procedure Laterality Date SECTION, LOW TRANSVERSE for her 3 deliveries TUBAL LIGATION [4] No family history on file. [5] No Known Allergies documented in this encounter Plan of Treatment Not on file documented as of this encounter Visit Diagnoses Diagnosis Myopia of both eyes- Primary Eyelid myokymia Other facial nerve disorders documented in this encounter Additional Health Concerns Assessment Noted Time PHQ-9 Depression Total Score: 2 02/04/20 24 2:11 PM EST documented as of this encounter Care Teams Safe And Vault Service Mechanic Relationship Specialty Start Date End Date Name, MD Blaise [address] [place] [address] PCP - General Internal Medicine 01/29/24 Tenisha Benavides Protection AgentBiomass Technician 06/04/23 documented as of this encounter
--- OUTSIDE RECORDS SUMMARY | 2024-11-17 15:27 | XMS_ITS | Encounter Summary ---
Author Organization [employer] Address [address] [place] [address] Care Team Providers Care Supervisor Cap And Hat Production Name Role Phone Leo Dickerson Primary Care Provider Unavail able Harriett Mazariegos MD Primary Care Provide r Name, Blaise URIBE Primary Care Provider [phone] Harriett Mazariegos MD Primary Care Provide r Name, Blaise URIBE Primary Care Provider [phone] Reason for Visit * Reason Onset Date Comments Results 09/04/2022 Encounter Details Date Type Department Care Team (Late st Contact Info) Description 09/04/2022 Telephone [facility] [address] [place], [place] [phone] Leo Dickerson AGNP Results Social History Tobacco [...] Recorded In the last 10 days, have yo u been in contact with someone who was confirmed or suspected to have Coronavirus/COVID-19? No / Unsure 08/24/2022 1:39 PM EDT documented as of this encounter Miscellaneous Notes * Telephone Encounter - Dian Mendez - 09/04/2022 2:46 PM EDT Tc from pt requesting a call in regards to recent labs done. Please contact pt at [phone] documented in this encounter Plan of Treatment Not on file documented as of this encounter Visit Diagnoses Not on filedocumented in this encounter Additional Health Concerns Assessment Noted Time PHQ-9 Depression Total Score: 0 07/07/19 10:37 AM EDT documented as of this encounter Care Teams Supervisor Cap And Hat Production Relationship Specialty Start Date End Date Leo Dickerson AGNP PCP - General Family Medicine 03/28/22 11/07/22 Harriett Mazariegos MD [address] [place] [address] PCP - General Internal Medicine 11/08/22 06/23/23 Blaise Cummings MD [address] [place] [address] PCP - General Internal Medicine 06/24/23 01/19/24 Harriett Mazariegos MD [address] [place] [address] PCP - General Internal Medicine 01/20/24 01/28/24 Blaise Cummings MD [address] [place] [address] PCP - General Internal Medicine 01/29/24 Tenisha Benavides Glass Wool Blanket Machine FeederSustainability Communicator 06/04/23 documented as of this encounter
--- OUTSIDE RECORDS SUMMARY | 2024-11-17 15:27 | XMS_ITS | Encounter Summary ---
Author Organization [employer] Address [address] [facility] [address] [place] [address] Care Team Providers Care Manager Payer Name Role Phone Harriett Mazariegos MD Primary Care Provide r Name, Blaise URIBE Primary Care Provider [phone] Harriett Mazariegos MD Primary Care Provide r Name, Blaise URIBE Primary Care Provider [phone] Reason for Visit * Reason Onset Date Comments Request For Order(s) 12/06/2022 Stress Echo Stress Encounter Details Date Type Department Care Team ([facility] st Contact Info) Description 12/06/2022 Telephone [facility] [address] [place], [place] [phone] Harriett Mazariegos MD [address] [place], [place] [phone] Request For Order(s) (Stress Echo Stress) Social [...] with others, in a hotel, in a longterm, living outside on the street, on a [...] 12/06/2022 11:02 AM EDT TC returned to [facility], informed their office stress [...] correct test. Please schedule regular echo at [facility], thank you!! * Telephone Encounter - Iva Art RN - 12/06/2022 10:33 AM EDT Regular echo was ordered at appt. With ABDIRIZAK Dickerson 08/24/22 to evaluate heart murmur, pt. Asymptomatic, details were:Comments: Murmur: [place] with each beat over aortic valve. Not heard over pulmonary valve, erb's point, or tricuspid valve. Murmur changes to a whooshing sound every 3 or 4 heart beats over the mitral valve. Please advise on if order needs to be changed to stress echo, or if regular echo if sufficient so [facility] can appropriately schedule pt. Thank you!! * Telephone Encounter - Josiah Lu - 12/06/2022 9:12 AM EDT Tc from [facility] calling in regards to echo order from 08/24/22 by LUPE Dickerson.Patient is currently booked for a stress echo on 12/07/22 at 1pm at [facility]. [facility] is inquiring if thetest is meant to be for a regular echo or a stress echo which will need a new order, [facility] only has regular echo order. Please clarify and send correct order. If PCP does not want a stress echo patie nts appt will have to be cancelled and booked for correct order. Please call [phone] Fax number [phone]. documented in this encounter Plan of Treatment Not on file documented as of this encounter Visit Diagnoses Not on filedocumented in this encounter Additional Health Concerns Assessment Noted Time PHQ-9 Depression Total Score: 0 07/07/19 10:37 AM EDT documented as of this encounter Care Teams Manager Payer Relationship Specialty Start Date End Date Harriett Mazariegos MD [address] [place], [place] [phone] PCP - General Internal Medicine 11/08/22 06/23/23 Name, MD Blaise [address] [place], [place] [phone] PCP - General Internal Medicine 06/24/23 01/19/24 Harriett Mazariegos MD [address] [place], [place] [phone] PCP - General Internal Medicine 01/20/24 01/28/24 Blaise Cummings MD [address] [place], [place] [phone] PCP - General Internal Medicine 01/29/24 Tenisha Benavides Electronic Warfare TechnicalMarble Cutter Operator 06/04/23 documented as of this encounter
--- OUTSIDE RECORDS SUMMARY | 2024-11-17 15:28 | XMS_ITS | Encounter Summary ---
Author Organization [employer] Address [address] [place] [address] Care Team Providers Care Printing Shop Supervisor Name Role Phone Name, Blaise URIBE Primary Care Provider [phone] Encounter Details Date Type Department Care Team (Latest Contact Info) Description 11/12/2024 Travel Social History Tobacco Use Types Packs/Day [...] documented as of this encounter Care Teams Printing Shop Supervisor Relationship Specialty Start Date End Date Name, MD Blaise [address] [place] [address] PCP - General Internal Medicine 01/29/24 Tenisha Benavides Stud Beef Cattle FarmerSpring Fitter Helper 06/04/23 documented as of this encounter
--- OUTSIDE RECORDS SUMMARY | 2024-11-17 15:28 | XMS_ITS | Clinical Summary ---
Author Organization [employer] Address [address] [place] [address] Care Team Providers Care Business Strategist Name Role Phone Name, Blaise URIBE Primary Care Provider [phone] Allergies No known active allergies Medications celecoxib (CeleBREX) 200 MG capsuleIndicati ons:Chronic bilateral low back pain without sciatica TAKE 1 CAPSULE BY MOUTH TWICE A DAY X 7 DAYS THEN NEEDED FOR PAIN 60 capsule 05/27/2024 Active Active Problems Problem Noted Date Diagnosed Date Chronic bilateral low back pain without sciatica 04/21/2024 Murmur, cardiac 08/24/2022 Assessment & Plan (08/24/2022 [...] being incredibly happy, I gave her a Amberson Depression Scale(EPDS) and told her to look [...] Overview (07/06/2022): Problem added by Discern Expert @[facility]:9 Resolved Problems Problem Noted Date Diagnosed Date Resolved Date Migraine 07/06/2022 07/06/2022 Encounters Date Type Department Care Team Description 11/12/2024 9:00 AM EDT Office Visit [facility] [address] [place], [place] [phone] Violeta Mccabe, OD Myopia of both eyes (Primary Dx); Eyelid myokymia 11/12/2024 Travel 10/21/2024 Telephone [facility] [address] [place], [place] [phone] Name, MD Blaise from Last 3 Months Immunizations Immunization Administration Dates Next Due DTaP 03/27/2004, 2,2000,05/29 [...] 103 04/17/2024 2:37 PM EST Temperature 37 C (98.6 F) 04/17/2024 2:37 PM EST Respiratory Rate 16 [...] 06/19/2021 06/20/2011, 03/27/2004, 04/22/2001, Additional history exists SDOH Screening 05/14/2024 05/15/2023 Pap Smear 06/13/2024 06/13/2021 COVID-19 Vaccine ( season) 2024 Influenza Vaccine (#1) 2024 , 01/24/2016, 02/27/2008 Depression Screening 02/03/2025 02/04/2024, 02/04/20 24 Disability Screening 02/03/2025 02/04/2024 Tobacco Screening 11/12/2025 11/12/2024 Zoster Vaccines (1 of 2) 2050 RSV Patients and Patients Aged 60 years or older (1 - 1-dose 75+ series) 2075 Pneumococcal Vaccine: Pediatrics (0 to 5 Years) and At-Risk Patients (6 to 49) Years Aged Out 2000, 2000, 2000 No longer [...] Hepatitis A Vaccines Completed 01/24/2016, 07/19/19 16 HIV Screening Discontinued Hepatitis C Screening Discontinued Meningococcal B Vaccine Aged Out No l onger eligible based on patient's age to complete this topic RSV under 20 months Aged Out No longe r eligible based on patient's age to complete this topic Rotavirus Vaccines Aged Out No longer eligible based on patient's age to complete this topic Procedures Procedure Name Priority Date/Time Associated Diagnosis Comments PAP/HPV Routine 06/13/2021 from Last 3 Months or Most Recently Relevant to Health Maintenance Results * Pap Smear (06/13/2021) Pap Negative for intraephithelial lesion or malignancy Negative for intraephithelial lesion or malignancy, Other Historical Provider HEALTH MAINTENANCE Final Result from Last 3 Months or Most Recently Relevant to Health Maintenance Insurance [employer] Care Teams Business Strategist Relationship Specialty Start Date End Date Name, MD Blaise [address] [place] [id number] PCP - General Internal Medicine 01/29/24 Tenisha Benavides Clay Products GlazerTop Steep Tender 06/04/23
--- OUTSIDE RECORDS SUMMARY | 2024-11-17 15:28 | XMS_ITS | Encounter Summary ---
Author Organization [employer] Address [address] [place] [address] Care Team Providers Care Unit Director Name Role Phone Name, Blaise URIBE Primary Care Provider Encounter Details Date Type Department Care Team (Late st Contact Info) Description 06/23/2024 Orders Only [facility] MEDICINE [address] [place] [address] Slime Loaiza FNP [address] [place] [address] Social History Tobacco Use Types Packs/Day Years [...] documented as of this encounter Care Teams Unit Director Relationship Specialty Start Date End Date Name, MD Blaise [address] [place] [address] PCP - General Internal Medicine 01/29/24 Tenisha Benavides Mainframe Systems AdministratorGovernment Property Inspector 06/04/23 documented as of this encounter
== END 2024-11-17 14:05 | disposition home or self-care (01) ==
LOC: HO.HHCL 14:04
PROVIDERS: PCP Internal Medicine Geriatric Medicine; Visit Provider Internal Medicine Geriatric Medicine
DX: Z83.49 Family history of other endocrine, nutritional and metabolic diseases (principal)
CPT/HCPCS: 36415; 84443